=== PATIENT | female | born 1955 | race Caucasian/White ===

== ENCOUNTER 2017-01-10 06:01 | Emergency (ER) | payer MEDICAID ==
[2017-01-10 06:26] VITALS: BP 168/86
--- NOTE | 2017-01-10 07:06 | EDM.PDOC ---
<Aditi Simmons - Last Filed: 01/10/17 07:08> ED HPI GENERAL MEDICAL PROBLEM - General Chief Complaint: General Stated Complaint: FAINTED @ 3AM, HEADACHE, DIZZY Time Seen by Provider: 01/10/17 06:15 Source of Information: Reports: Patient History Limitations: Reports: No Limitations - History of Present Illness INITIAL COMMENTS - FREE TEXT/NARRATIVE: ED ambulatory with c/o severe dizziness since 3am, Got up to BR and dizzy fell to floor, did not pass out or hit head, made it back to bed and tried to get up at 5am and still dizzy. Able to drive self here. Dizziness worse when standing, similar episodes in past. MRI done at [facility] yesterday due to question of heart valves leaking. Severity: Mild Associated Symptoms: Reports: Headaches Throat Pain Score (Numeric/FACES): 6 - Related Data Allergies Allergy/AdvReac Type Severity Reaction Status Date / Time enalapril maleate Allergy Cough Verified 01/10/17 06:27 [From Vasotec] enalaprilat dihydrate Allergy Cough Verified 01/10/17 06:27 [From Vasotec] Home Meds: Home Meds Insulin Glarg,Human.Rec.Analog [Lantus] 100 units SQ DAILY 02/13/14 [History] Rosuvastatin [Crestor] 20 mg PO BEDTIME 02/13/14 [History] amLODIPine Besylate [Amlodipine Besylate] 10 mg PO BEDTIME 02/13/14 [History] Zolpidem Tartrate [Zolpidem Tartrate] 5 mg PO DAILY 01/10/17 [History] Past Medical History - Infectious Disease History Infectious Disease History: Reports: Chicken Pox, Measles, Shingles - Past Surgical History Other Cardiovascular Surgeries/Procedures: Tetralogy of Fallot Other GI Surgeries/Procedures: Gastric Bypass Social & Family History - Tobacco Use Smoking Status *Q: Never Smoker Second Hand Smoke Exposure: No - Caffeine Use Caffeine Use: Reports: None - Recreational Drug Use Recreational Drug Use: No ED ROS GENERAL - Review of Systems Review Of Systems: See Below Constitutional: Reports: Chills HEENT: Reports: Throat Pain Respiratory: Reports: No Symptoms Cardiovascular: Reports: Lightheadedness, Syncope (near) Endocrine: Reports: No Symptoms GI/Abdominal: Reports: No Symptoms : Reports: No Symptoms Musculoskeletal: Reports: No Symptoms Neurological: Reports: Headache (posterior), Syncope (near) ED EXAM, GENERAL - Physical Exam Exam: See Below Exam Limited By: No Limitations General Appearance: Alert, No Apparent Distress Eye Exam: Bilateral Eye: EOMI, PERRL Ears: Normal External Exam, Normal TMs Nose: Normal Inspection Throat/Mouth: Normal Inspection, Normal Oropharynx Head: Atraumatic, Normocephalic Neck: Normal Inspection, Full Range of Motion Respiratory/Chest: No Respiratory Distress, Lungs Clear, Normal Breath Sounds Cardiovascular: Normal Peripheral Pulses, Regular Rate, Rhythm, Systolic Murmur GI/Abdominal: Normal Bowel Sounds, Soft, Non-Tender Extremities: Normal Inspection, Normal Range of Motion, Non-Tender, Normal Capillary Refill Neurological: Alert, Oriented, CN II-XII Intact, Normal Cognition, Normal Gait, Normal Reflexes, No Motor/Sensory Deficits Psychiatric: Normal Affect, Normal Mood Skin Exam: Warm, Dry, Intact, Pallor Course - Vital Signs Last Recorded V/S: Last Vital Signs Temp 35.7 C 01/10/17 06:10 Pulse 62 01/10/17 06:10 Resp 17 01/10/17 06:10 BP 168/86 H 01/10/17 06:10 Pulse Ox 100 01/10/17 06:10 Orthostatic Blood Pressure [ 116/67 Standing] Orthostatic Blood Pressure [ 140/68 Sitting] Orthostatic Blood Pressure [ 150/68 Supine] - Orders/Labs/Meds Orders: Active Orders 24 hr Category Date Time Status EKG Documentation Completion [RC] URGENT Care 01/10/17 06:09 Active Glucose [Blood Glucose Check, Bedside] [RC] ONETIME Care 01/10/17 06:39 Active Orthostatic Vital Signs [RC] ASDIRECTED Care 01/10/17 06:53 Active CULTURE STREP A CONFIRMATION [RM] Stat Lab 01/10/17 06:35 Results STREP SCRN A RAPID W CULT CONF [RM] Stat Lab 01/10/17 06:35 Results UA W/MICROSCOPIC [URIN] Stat Lab 01/10/17 06:56 Uncollected Labs: Laboratory Tests 01/10/17 01/10/17 01/10/17 Range/Units 06:20 06:20 06:29 WBC 7.6 (5.0-10.0) 10^3/uL RBC 4.76 (4.2-5.4) 10^6/uL Hgb 14.3 (12.0-16.0) g/dL Hct 45.2 (37.0-47.0) % MCV 95.0 (80-100) fL MCH 30.0 (27.0-34.0) pg MCHC 31.6 L (33.0-35.0) g/dL Plt Count 233 (150-450) 10^3/uL Neut % (Auto) 40.0 L (42.2-75.2) % Lymph % (Auto) 49.4 (20.5-50.1) % [place] % (Auto) 8.2 H (2-8) % Eos % (Auto) 2.0 (1.0-3.0) % Baso % (Auto) 0.4 (0.0-1.0) % Sodium 142 (135-145) mmol/L Potassium 4.3 (3.6-5.0) mmol/L Chloride 107 (101-111) mmol/L Carbon Dioxide 22.0 (21.0-31.0) mmol/L Anion Gap 17.3 BUN 14 (7-18) mg/dL Creatinine 0.9 (0.6-1.3) mg/dL Est Cr Clr Drug Dosing 58.12 mL/min Estimated GFR (MDRD) > 60 BUN/Creatinine Ratio 15.55 Glucose 102 (74-105) mg/dL POC Glucose (70-105) mg/dl Calcium 9.4 (8.4-10.2) mg/dl Total Bilirubin 0.8 (0.2-1.0) mg/dL AST 28 (10-42) IU/L ALT 24 (10-60) IU/L Alkaline Phosphatase 72 (42-121) IU/L CK-MB (CK-2) 2.50 (0.4-4.7) ng/mL Troponin I < 0.02 (0.00-0.02) ng/ml C-Reactive Protein < 0.5 (0.0-1.3) mg/dL Total Protein 7.1 (6.7-8.2) g/dl Albumin 3.8 (3.2-5.5) g/dl Globulin 3.3 Albumin/Globulin Ratio 1.15 Amylase 114 H (28-100) U/L Lipase 23 (22-51) U/L 01/10/17 Range/Units 06:43 WBC (5.0-10.0) 10^3/uL RBC (4.2-5.4) 10^6/uL Hgb (12.0-16.0) g/dL Hct (37.0-47.0) % MCV (80-100) fL MCH (27.0-34.0) pg MCHC (33.0-35.0) g/dL Plt Count (150-450) 10^3/uL Neut % (Auto) (42.2-75.2) % Lymph % (Auto) (20.5-50.1) % [place] % (Auto) (2-8) % Eos % (Auto) (1.0-3.0) % Baso % (Auto) (0.0-1.0) % Sodium (135-145) mmol/L Potassium (3.6-5.0) mmol/L Chloride (101-111) mmol/L Carbon Dioxide (21.0-31.0) mmol/L Anion Gap BUN (7-18) mg/dL Creatinine (0.6-1.3) mg/dL Est Cr Clr Drug Dosing mL/min Estimated GFR (MDRD) BUN/Creatinine Ratio Glucose (74-105) mg/dL POC Glucose 100 (70-105) mg/dl Calcium (8.4-10.2) mg/dl Total Bilirubin (0.2-1.0) mg/dL AST (10-42) IU/L ALT (10-60) IU/L Alkaline Phosphatase (42-121) IU/L CK-MB (CK-2) (0.4-4.7) ng/mL Troponin I (0.00-0.02) ng/ml C-Reactive Protein (0.0-1.3) mg/dL Total Protein (6.7-8.2) g/dl Albumin (3.2-5.5) g/dl Globulin Albumin/Globulin Ratio Amylase (28-100) U/L Lipase (22-51) U/L - Re-Assessments/Exams Free Text/Narrative Re-Assessment/Exam: 01/10/17 07:[address] Doan at change of shift Departure - Departure Disposition: DC/Tfer to Acute Hospital 02 Clinical Impression: Near syncope, History of tetralogy of Fallot, History of gastric bypass - Discharge Information Forms: ED Department Discharge, Interfacility Transfer FRANCISCO <HarmanFranky brown Terence - Last Filed: 01/10/17 08:09> ED HPI GENERAL MEDICAL PROBLEM - History of Present Illness INITIAL COMMENTS - FREE TEXT/NARRATIVE: Assumed care of pt from Aditi BUCKLEY at [id number] shift change with labs pending. Pt reports onset of recurrent near-syncope in 2015, which improved without tx, then worsened in 2016 only to improve again. Over the past couple of days the Sx's have returned and are much worse and more persistent than in the past. Duration: Chronic, Getting Worse Location: Reports: Generalized EKG INTERPRETATION EKG Date: 01/10/17 Time: 06:28 Rhythm: Other (sinus ried) Rate (Beats/Min): 58 [place]: Normal P-Wave: Present QRS: Normal ST-T: Other (Ant. T-wave inversion) QT: Normal Comparison: NA - No Prior EKG Course - Radiology Interpretation Free Text/Narrative:: CT Head: no acute intracranial path. see Rad. report. CT Results Date: 01/10/17 CT Results Time: 07:30 Departure - Departure Time of Disposition: 07:59 Condition: Serious
[2017-01-10 07:30] LABS: CHLORIDE,CL 107 mmol/L (101-111); SODIUM,NA 142 mmol/L (135-145)
--- NOTE | 2017-01-25 10:46 | EKG ---
01/10/2017- ROBBY NELSON - EKG per my reading shows sinus rhythm at a rate of [address] changes. There are Q-waves in V2 and V3 leads. [facility] /[id number]
== END 2017-01-10 08:55 ==
LOC: DL.ED 06:01
DX: R55 Syncope and collapse (principal); Q21.3 Tetralogy of Fallot; Z88.8 Allergy status to other drugs, medicaments and biological substances; Z98.84 Bariatric surgery status
CPT/HCPCS: 36415; 70450; 80053; 81001; 82150; 82553; 82962; 83690; 84484; 85025; 86140; 87081; 87430; 93005; 99285

== ENCOUNTER 2023-03-26 10:14 | Emergency (ER) | payer MEDICAID ==
[2023-03-26] MEDS ORDERED: Sodium Chloride 0.9% 1,000 ML IV ONE (10:24)
[2023-03-26] MEDS ORDERED: Sodium Chloride 0.9% 10 ML Syringe FLUSH PRN (10:24)
[2023-03-26] MEDS ORDERED: Iopamidol 612 MG/ML 100 ML Bottle IVPUSH ONE (10:26)
[2023-03-26 10:39] LABS: BASOPHILS PERCENT AUTO 0.2 % (0.0-1.0); EOSINOPHILS PERCENT AUTO 0.9 % (1.0-3.0); HEMATOCRIT 41.2 % (37.0-47.0); HEMOGLOBIN 13.2 g/dL (12.0-16.0); LYMPHOCYTES PERCENT AUTO 33.8 % (20.5-50.1); MEAN CORPUSCULAR HEMOGLOBIN 29.5 pg (27.0-34.0); MEAN CORPUSCULAR VOLUME 92.2 fL (80-100); MONOCYTES PERCENT AUTO 6.6 % (2-8); NEUTROPHILS PERCENT AUTO 58.5 % (42.2-75.2); PLATELET COUNT,PLT 281 10^3/uL (150-450); RED BLOOD CELL COUNT 4.47 10^6/uL (4.2-5.4)
[2023-03-26 10:59] LABS: A/G RATIO 0.79; ALANINE AMINOTRANSFERASE,ALT 9 U/L (14-59); ALBUMIN 3.3 g/dL (3.4-5.0); ALKALINE PHOSPHATASE 96 U/L (46-116); ANION GAP 16.1 mEq/L (7-13); ASPARTATE AMNIOTRANSFERASE,AST 10 U/L (15-37); BILIRUBIN TOTAL 0.6 mg/dL (0.2-1.0); BLOOD UREA NITROGEN,BUN 26 mg/dL (7-18); BUN/CREATININE RATIO 13.4 (No establ ref range); CALCIUM 8.8 mg/dL (8.5-10.1); CARBON DIOXIDE,CO2 24 mmol/L (21-32); CHLORIDE,CL 102 mmol/L (98-107); CREATININE 1.94 mg/dL (0.55-1.02); ESTIMATED GFR 28 mL/min (>=60); GLUCOSE RANDOM 116 mg/dL (70-99); POTASSIUM,K 4.1 mmol/L (3.5-5.1); PROTEIN TOTAL,TP 7.5 g/dL (6.4-8.2); SODIUM,NA 138 mmol/L (136-145)
[2023-03-26 11:15] VITALS: BP 169/88; PULSE 74
[2023-03-26 11:45] LABS: APPEARANCE,URINE CLEAR (CLEAR); BILIRUBIN,URINE NEGATIVE (NEGATIVE); COLOR,URINE YELLOW (YELLOW); GLUCOSE,URINE NEGATIVE (NEGATIVE); KETONES,URINE NEGATIVE (NEGATIVE); LEUKOCYTE ESTERASE,URINE NEGATIVE (NEGATIVE); NITRITE,URINE NEGATIVE (NEGATIVE); OCCULT BLOOD,URINE NEGATIVE (NEGATIVE); PROTEIN,URINE NEGATIVE (NEGATIVE); UROBILINOGEN,URINE 0.2 mg/dL (0.2-1.0)
[2023-03-26] MEDS ORDERED: cefTRIAXone 1 GM Vial IVPUSH ONE (12:00)
[2023-03-26] MEDS ORDERED: Morphine 2 MG/ML SYRINGE IVPUSH ONE (12:42)
[2023-03-26] MEDS ORDERED: diphenhydrAMINE 50 MG/ML SDV IVPUSH ONE (13:05)
== END 2023-03-26 13:14 ==
LOC: DL.ED 10:14
DX: N13.2 Hydronephrosis with renal and ureteral calculous obstruction (principal); E11.9 Type 2 diabetes mellitus without complications; Z86.16 Personal history of COVID-19; Z88.8 Allergy status to other drugs, medicaments and biological substances
CPT/HCPCS: 36415; 74176; 80053; 81003; 85025; 96361; 96374; 96375; 99285-25; J0696; J1200; J2270; J3490; J7030

== ENCOUNTER 2024-10-04 12:30 | Emergency (ER) | payer MEDICARE ==
[2024-10-04 12:47] VITALS: BP 128/92; PULSE 88
[2024-10-04] MEDS: Acetaminophen 500 MG Tab PO ONE (15:16)
== END 2024-10-04 15:20 | disposition home or self-care (01) ==
LOC: DL.ED 12:30
DX: S93.401A Sprain of unspecified ligament of right ankle, initial encounter (principal); S90.31XA Contusion of right foot, initial encounter; J45.909 Unspecified asthma, uncomplicated; E11.9 Type 2 diabetes mellitus without complications; Z86.16 Personal history of COVID-19; Z98.84 Bariatric surgery status; Z90.710 Acquired absence of both cervix and uterus; Z88.8 Allergy status to other drugs, medicaments and biological substances; Z79.899 Other long term (current) drug therapy; W01.0XXA Fall on same level from slipping, tripping and stumbling without subsequent striking against object, initial encounter
CPT/HCPCS: 73610; 73630; 99283; A9270